=== PATIENT | female | born 1945 | race Caucasian/White ===

== ENCOUNTER 2017-05-07 01:08 | Inpatient (IN) | payer OTHER, MEDICARE ==
[~2017-05-07] VITALS: Ht 165.1 cm; Wt 106.3 kg
[~2017-05-07 01:08] MED LIST: AMLODIPINE BESY10 M1 PO; AMLODIPINE10 MG PO; CALCIUM + D 6001 TAB PO; CALCIUM + VITA1 EAC1 PO; CENTRUM SILVER1 TA1 PO; FISH OIL 1,0001 EAC5 PO; FISH OIL CONC1000 MG PO; IRON325 M3 PO; LEVOTHYROXIN0.025 M1 PO; LEVOTHYROXINE25 MCG PO; MULTIVITAMINS1 EAC9 PO; NORFLEX100 MG PO; OMEPRAZOLE20 M3 PO; PRILOSEC20 MG PO; PROLIA60 MG/ML SC; VITAMIN C1000 M1 PO; VITAMIN C500 M9 PO
[2017-05-07 11:58] VITALS: BP 132/76
[2017-05-07 12:00] VITALS: BP 132/76
--- NOTE | 2017-05-07 13:06 | Operative Report ---
Operative/Inv Procedure Report Surgery Date: 05/07/17 Name of Procedure: Left total knee arthroplasty using Pan triathlon Pre-Operative Diagnosis: Degenerative joint disease left knee Post-Operative Diagnosis: Degenerative joint disease left knee Estimated Blood Loss: less than 50ml Surgeon/Powder Blender And Pourer: Lubna MURRELL,Kadeem Villarreal.P.A. Anesthesia: block Implants: Striker triathlon system #5 femoral posterior stabilized component, #4 tibial baseplate, 13 mm polyethylene insert, 33 mm patella component Drains: 1 Hemovac Specimens: Bone specimen sent to pathology Tourniquet: Tourniquet time was 89 minutes Complications: None Condition: Stable return to the recovery room Operative Indication: This is a 71-year-old lady who has severe degenerative joint disease of the medial compartment and patellofemoral joint. She has been managed conservatively with anti-inflammatories and cortisone injections but conservative treatment has failed and now she is mid is admitted for a left total knee arthroplasty Operative/Procedure Note Note: The patient received IV vancomycin in the preoperative area. She was then taken to the operating room and a spinal anesthetic was administered. She had also had a femoral block administered in the preop area. A second pair of skilled hands was required for the successful outcome of this procedure. Truman Villarreal a certified physician's legal support assistant was required for retraction coagulation and positioning of the components. His presence was required for the successful completion of this operation. Patient received a dose of trans-Andrew acid. The left lower extremity was then prepped and draped in usual sterile fashion. A legholder was used throughout the procedure and a tourniquet was inflated above the left thigh to a pressure of 350 mmHg. The left lower extremity had been exsanguinated with a sterile Esmarch prior to tourniquet inflation. A midline incision was made and taken down through skin and subcutaneous tissue. Small bleeders are cauterized the Bovie. A medial parapatellar incision was then made and the patella was easily dislocated laterally. Osteophytes were removed from the femur tibia and patella. A partial medial release was performed. Medial and lateral meniscectomies were performed. Anterior cruciate ligament was excised. A drill hole was then made just anterior to the attachment of the anterior cruciate ligament and the long femoral guide marvel was inserted into the medullary canal. The distal femoral cutting jig was assembled and the distal femoral cut was made without difficulty. The cut surfaces were sized to a #5 femoral template. Anterior posterior and chamfer cuts were then made. A midline cutting jig was used to osteotomize the midportion of the distal femur to accept the posterior stabilized component. Attention was then turned to the tibial surface. A drill hole was made at the footprint of the anterior cruciate ligament and the tibial guide marvel was placed into the tibial medullary canal without difficulty. Using the tibial cutting jig, 3 mm of bone were resected from the affected medial side. A number 4 tibial baseplate then was placed on the cut surface of the tibia and this afforded good coverage. A trial reduction was then performed using a 13 mm tibial insert. The patient had a full range of motion she had full extension and good medial and lateral ligamentous balance. Posterior osteophytes were then removed from the distal femur using a curved osteotome Attention was then turned to the patella. A flat osteotomy was then performed and a 33 mm patellar trial afforded excellent coverage. Patient did need a lateral release to centralize tracking. The cut surface of the tibial plateau was then drilled to accept the fins of the tibial baseplate. The cut surfaces of the bones were then copiously irrigated with pulsatile lavage and antibiotic solution. The surgical area was then dried. A #5 femoral component was then cemented into place. Following this a number 4 tibial baseplate was cemented into place. Excess cement was removed with curettes. A 13 mm polyethylene temporary trial was then placed into the tibial baseplate and the knee was held in extension until the cement dried. We then cemented the 33 mm patellar button into place and the component was held with a clamp until the cement had dried. After 15 minutes all of the cement surfaces had been dried. The tibial trial insert was removed and a permanent 13 mm polyethylene insert was placed over the baseplate and locked into position. Patient again had a full range of motion, full extension and good medial and lateral ligamentous balance. The patella tracked well. The knee was once again copiously irrigated. A large Hemovac drain was placed in the lateral gutter through a small stab incision. The deep tissue layers were closed with #1 Vicryl interrupted sutures. The subcutaneous tissues were closed with 2-0 Vicryl and the skin was closed with surgical nikki. Blood loss was scant. Tourniquet time was 89 minutes. She was returned to the recovery room in excellent condition.
--- NOTE | 2017-05-07 14:05 | Admission Core Measures ---
Acute Coronary Syndrome (CM) ACS Core Measures Acute Coronary Syndrome Diagnosis No Congestive Heart Failure (NEW) CHF Core Measures Congestive Heart Failure Diagnosis No Cerebrovascular Accident (NEW) CVA Core Measures CVA/TIA Diagnosis No Venous Thromboembolism VTE Core Yessica (View Protocol) VTE Risk Factors Age>40 No Mechanical VTE Prophylaxis d/t N/A MechProphylax Ordered No VTE Pharm Prophylaxis d/t NA PharmProphylax ordered Problem List As ranked by this Provider includes Assessment & Plan 1. Localized osteoarthritis of left knee 2. Total knee replacement status HOME MEDS Home Med List Amlodipine Besylate 10 MG TABLET 1 TAB PO DAILY BP (Reported) Ascorbic Acid (Vitamin C) (Unknown Strength) CAPSULE (Unknown Dose) PO DAILY SUPPLEMENT (Reported) Calcium Carbonate/Vitamin D3 (Calcium + Vitamin D Tablet) (Unknown Strength) TABLET (Unknown Dose) PO DAILY SUPPLEMENT (Reported) Ferrous Sulfate (IRON) 325 MG (65 MG IRON) TABLET 1 TAB PO DAILY SUPPLEMENT ( Reported) Levothyroxine Sodium 25 MCG TABLET 1 TAB PO DAILY THYROID (Reported) Multiple Vitamin (Multivitamins) 1 EACH TABLET 1 TAB PO DAILY SUPPLEMENT ( Reported) [place]-3S/Dha/Epa/Fish Oil (Fish Oil 1,000 MG Softgel) (Unknown Strength) CAPSULE (Unknown Dose) PO DAILY SUPPLEMENT (Reported) Omeprazole 20 MG TABLET.DR 1 TAB PO DAILY GI (Reported)
--- NOTE | 2017-05-07 14:07 | PN- Orthopedic ---
Subjective Subjective: Postop check: Patient's feeling in her room postoperatively, she is in good spirits, she is doing well, she has no complaints of left knee pain, her appetite is good, finished lunch, no complications postoperatively. Objective Vital Signs and I&Os Vital Signs Date Time Temp Pulse Resp B/P B/P Pulse O2 O2 Flow FiO2 Mean Ox Delivery Rate 05/07 1200 97.8 68 18 132/76 94 Nasal 2.0L Cannula 05/07 1158 94 Nasal 2.0L Cannula 05/07 1158 97.8 68 18 132/76 94 Nasal 2.0L Cannula Intake & Output 05/07 1600 05/07 0800 05/07 0000 05/06 1600 05/06 0800 05/06 0000 Intake Total Output Total Balance Patient 200 lb 200 lb Weight Weight Reported by Patient Measurement Method Physical Exam: Well-developed well-nourished no apparent distress. HEENT: Atraumatic, extraocular motion intact Neck: Supple, no lymphadenopathy Respiratory: No respiratory distress Extremities: No edema /LEFT lower extremity dressing in place, large AMRIANNE drain in place, small amount of bloody drainage noted Dressing clean dry and intact On Q in place Compression wrap in place. ALPS in place Neurovascularly intact distally Bilateral calves are supple, nontender. Neuro: Alert and oriented x3 Psych: Mood affect normal, normal memory normal judgment. Skin: Warm and dry, no rash on exposed skin Assessment/Plan Assessment/Plan Postop day #0 status post left total knee arthroplasty Perioperative antibiotics. Pain medication as needed. Out of bed Physical therapy, weightbearing as tolerated IV fluids Nieves catheter until tomorrow Regular diet Continue on Q Follow a.m. labs Continue MARIANNE drain to self suction, record output every shift Eliquis for DVT prophylaxis ALPS for DVT prophylaxis Regular home meds Dressing change postop day 2 Core Measures Venous Thromboembolism VTE Risk Factors Age>40 No Mechanical VTE Prophylaxis d/t N/A MechProphylax Ordered No VTE Pharm Prophylaxis d/t NA PharmProphylax ordered
[2017-05-07 14:32] VITALS: BP 112/60
[2017-05-07 16:02] VITALS: BP 118/58
[2017-05-07 18:10] VITALS: BP 130/60
[2017-05-07 20:00] VITALS: BP 142/60
[2017-05-08 00:12] VITALS: BP 134/68
[2017-05-08 04:00] VITALS: BP 134/60
[2017-05-08 07:59] VITALS: BP 132/72
[2017-05-08 08:03] LABS: ABSOLUTE BASOPHIL COUNT 0 /CUMM (0.0-0.2); ABSOLUTE EOSINOPHIL COUNT 0 /CUMM (0.0-0.7); ABSOLUTE GRANULOCYTE CT 13.5 /CUMM (1.4-6.5); ABSOLUTE LYMPH COUNT 0.6 /CUMM (1.2-3.4); ABSOLUTE MONOCYTE COUNT 1.2 /CUMM (0.10-0.60); BASOPHIL % 0 % (0.0-2.0); EOSINOPHIL % 0 % (0-5); MEAN CORPUSCULAR HGB 29.3 PG (27.0-31.0); MEAN CORPUSCULAR HGB CONC 33.4 G/DL (33.0-37.0); MEAN CORPUSCULAR VOLUME 87.8 FL (81.0-99.0); MEAN PLATELET VOLUME 10.3 FL (7.4-10.4); PLATELET COUNT 175 /CUMM (130-400); RBC DISTRIBUTION WIDTH 13.6 % (11.5-14.5); RED BLOOD CELL CT 3.65 /CUMM (4.20-5.40); WHITE BLOOD CELL COUNT 15.3 /CUMM (4.8-10.8)
[2017-05-08 09:47] LABS: GRANULOCYTE % 88.3 % (42.2-75.2)
--- NOTE | 2017-05-08 11:45 | PN- Orthopedic ---
Subjective Subjective: No acute overnight events reported. Pain tolerable presently per patient, only feels "Throbbing". Was able to ambulate with PT. Denies chest pain, shortness of breath and difficulty breathing. Denies nausea and vomitting. Has been tolerating adequate po, iv fluids have been dcd. No dizziness. Nieves catheter dc'd this am. Voided spontaneously. Objective Vital Signs and I&Os Vital Signs Date Time Temp Pulse Resp B/P B/P Pulse O2 O2 Flow FiO2 Mean Ox Delivery Rate 05/08 0759 98.1 69 18 132/72 90 Room Air 05/08 0400 98.8 62 18 134/60 91 Room Air 05/08 0012 98.7 64 18 134/68 91 Room Air 05/07 2000 98.4 68 18 142/60 91 Room Air 05/07 1810 97.6 68 18 130/60 93 Room Air 05/07 1602 97.5 61 16 118/58 93 Room Air 05/07 1432 97.5 57 18 112/60 92 05/07 1200 97.8 68 18 132/76 94 Nasal 2.0L Cannula 05/07 1158 94 Nasal 2.0L Cannula 05/07 1158 97.8 68 18 132/76 94 Nasal 2.0L Cannula Intake & Output 05/08 1600 05/08 0800 05/08 0000 05/07 1600 05/07 0800 05/07 0000 Intake Total 200 400 825 Output Total 865 270 400 Balance -665 130 425 Intake, IV 300 225 Intake, Oral 200 100 600 Number 0 Bowel Movements Output, 65 120 Drainage Output, Urine 800 150 400 Patient 203 lb 200 lb Weight Weight Bed scale Reported by Patient Measurement Method Physical Exam: General: Alert and oriented x3, no acute distress Cardiac: RRR, s1s2 Pulm: CTA bilaterally ABD: Soft, non-tender, non-distended Extremities: Moves all extremities, distal sensation grossly intact. Skin warm and well perfused. DP pulses palpable bialterally. Bilateral calves soft and non-tender Surgical site: Left knee. Dressing dry and intact. On Q in place, no leaking. MARIANNE drain holding suction, sanguinous drainage. Assessment/Plan Assessment/Plan This is a 71 year old female, POD 1, s/p L TKR -DVT ppx: Alps, eliquis 2.5 bid to start today -Activity: OOB, wbat -Diet: As tolerated, dc iv fluids -Pain: Continue current pain regimen, recommend no toradol while on eliquis -Dressing: To be changed tomorrow by surgical pa -Anticipate dc to home thursday -Will discuss plan of care with dr. Calvo Core Measures Venous Thromboembolism VTE Risk Factors Age>40 No Mechanical VTE Prophylaxis d/t N/A MechProphylax Ordered No VTE Pharm Prophylaxis d/t NA PharmProphylax ordered
[2017-05-08 11:56] VITALS: BP 132/80
--- NOTE | 2017-05-08 14:18 | PN- Orthopedic ---
Surgical Brief Attending Note Brief Attending Note: Ariella is 24 hours status post left total knee arthroplasty. Her vital signs are stable. She is comfortable and the femoral block appears to be working. She was able to ambulate 250 feet today and this afternoon she will negotiate stairs. Neurologically she is intact. Her blood work today reveals a white count of 15 a hemoglobin of 10.7 and a hematocrit of 32. Her potassium was 4.0. Her Nieves was discontinued her Hemovac is still draining a small amount and should be discontinued tomorrow. She will be on Eliquis for the next 4 weeks. Suture removal will be in 2 weeks and then I will see her routinely in the office in 4 weeks barring any problems.
[2017-05-08 14:39] VITALS: BP 132/72
[2017-05-08 22:29] VITALS: BP 124/76
[2017-05-09 06:55] VITALS: BP 134/72
--- NOTE | 2017-05-09 09:17 | PN- Orthopedic ---
Subjective Subjective: Patient reports pain last night after working with PT. Currently pain is well controlled with Percocet this morning. She is tolerating a diet without any nausea or vomiting. She reports voiding and is passing flatus. Hemovac was removed yesterday. Objective Vital Signs and I&Os Vital Signs Date Time Temp Pulse Resp B/P B/P Pulse O2 O2 Flow FiO2 Mean Ox Delivery Rate 05/09 0655 97.8 61 18 134/72 96 Room Air 05/08 2229 98.9 64 18 124/76 93 Room Air 05/08 1439 98.1 69 20 132/72 90 Room Air 05/08 1156 98.1 64 18 132/80 93 Room Air Intake & Output 05/09 1600 05/09 0800 05/09 0000 05/08 1600 05/08 0800 05/08 0000 Intake Total 250 250 900 200 400 Output Total 90 865 330 Balance 250 250 810 -665 70 Intake, IV 10 10 300 Intake, Oral 240 240 900 200 100 Number 0 Bowel Movements Output, 90 65 180 Drainage Output, Urine 800 150 Patient 234 lb 203 lb Weight Weight Bed scale Measurement Method Physical Exam: Gen - sitting in a chair in NAD Cardiac - S1S2 noted Lungs - CTAB Ext - LLE uhgh wrap and ice in place, onQ removed, incision closed with nikki healing well with no signs of infection, dressing changed, moderate swelling noted, motor and sensory intact, appropriately tender, alps in place, no significant edema or calf tenderness Current Medications: Current Medications Sig/Derrick Start time Last Medication Dose Route Stop Time Status Admin Amlodipine Besylate 10 MG DAILY 05/07 1000 AC 05/08 PO 0834 Apixaban 2.5 MG BID 05/08 1000 AC 05/08 PO 2045 Docusate Sodium 100 MG DAILY NEEDED PRN 05/07 1245 AC PO Levothyroxine Sodium 0.025 MG DAILY 05/07 1000 AC 05/08 PO 0636 Morphine Sulfate 4 MG Q3P PRN 05/07 1415 AC IV Omeprazole 20 MG DAILY AC 05/08 0700 AC 05/09 PO 0553 Ondansetron HCl 4 MG Q6P PRN 05/07 1245 AC IV Oxycodone/ 1 TAB Q4P PRN 05/07 1245 AC Acetaminophen PO Oxycodone/ 2 TAB Q4P PRN 05/07 1245 AC 05/09 Acetaminophen PO 0553 Patient Medication 1 ED ONE ONE 05/08 1400 DC 05/08 [facility] ED 05/08 1401 1912 Polyethylene Glycol 17 GM DAILY NEEDED PRN 05/07 1245 AC PO Senna/Docusate Sodium 2 TAB AT BEDTIME NEED.. 05/07 1245 AC PO Results Last 48 Hours of Labs: Laboratory Tests 05/08 0704 Chemistry Sodium (137 - 145 mmol/L) 140 Potassium (3.5 - 5.1 mmol/L) 4.0 Chloride (98 - 107 mmol/L) 105 Carbon Dioxide (22 - 30 mmol/L) 23 Anion Gap (5 - 16) 12 BUN (7 - 17 mg/dL) 16 Creatinine (0.5 - 1.0 mg/dL) 0.7 Estimated GFR (>60 ml/min) > 60 BUN/Creatinine Ratio (7 - 25 %) 22.9 Hematology CBC w Diff NO MAN DIFF REQ WBC (4.8 - 10.8 /CUMM) 15.3 H RBC (4.20 - 5.40 /CUMM) 3.65 L Hgb (12.0 - 16.0 G/DL) 10.7 L Hct (37 - 47 %) 32.0 L MCV (81.0 - 99.0 FL) 87.8 MCH (27.0 - 31.0 PG) 29.3 MCHC (33.0 - 37.0 G/DL) 33.4 RDW (11.5 - 14.5 %) 13.6 Plt Count (130 - 400 /CUMM) 175 MPV (7.4 - 10.4 FL) 10.3 Gran % (42.2 - 75.2 %) 88.3 H Lymphocytes % (20.5 - 51.1 %) 3.7 L Monocytes % (1.7 - 9.3 %) 8.0 Eosinophils % (0 - 5 %) 0 Basophils % (0.0 - 2.0 %) 0 Absolute Granulocytes (1.4 - 6.5 /CUMM) 13.5 H Absolute Lymphocytes (1.2 - 3.4 /CUMM) 0.6 L Absolute Monocytes (0.10 - 0.60 /CUMM) 1.2 H Absolute Eosinophils (0.0 - 0.7 /CUMM) 0 Absolute Basophils (0.0 - 0.2 /CUMM) 0 Recent Imaging Studies: SERVICE DATE: 05/09/17 EXAM TYPE: RAD - XRY-KNEE, LEFT EXAMINATION: XR KNEE, LEFT CLINICAL INFORMATION: Status post left total knee arthroplasty. COMPARISON: None TECHNIQUE: AP and crosstable lateral views of the left knee. FINDINGS: Prosthetic components of the left total knee arthroplasty are appropriately aligned. No periprosthetic fracture. Skin nikki are present in the anterior soft tissues which are swollen and edematous. A small joint effusion is present. IMPRESSION: Appropriate alignment of the left total knee arthroplasty. Assessment/Plan Assessment/Plan 71 F POD 2 s/p L TKR, recovering well, knee x-ray revelaed appropriate alignment , cleared by PT Reg diet PT, WBAT Pain reigmen prn, d/c IV narcotics Eliquis 2.5mg bid x 4 weeks Cont dry daily dressing changes Home meds on board Bowel regimen on board Anticipate d/c home with hhs within 24-48 hours D/w Dr. Patino who is covering for Dr. Calvo Core Measures Venous Thromboembolism VTE Risk Factors Age>40 No Mechanical VTE Prophylaxis d/t N/A MechProphylax Ordered No VTE Pharm Prophylaxis d/t NA PharmProphylax ordered
--- NOTE | 2017-05-09 09:51 | RADIOLOGY REPORT ---
EXAMINATION: XR KNEE, LEFT CLINICAL INFORMATION: Status post left total knee arthroplasty. COMPARISON: None TECHNIQUE: AP and crosstable lateral views of the left knee. FINDINGS: Prosthetic components of the left total knee arthroplasty are appropriately aligned. No periprosthetic fracture. Skin nikki are present in the anterior soft tissues which are swollen and edematous. A small joint effusion is present. IMPRESSION: Appropriate alignment of the left total knee arthroplasty.
[2017-05-09] MEDS ORDERED: ELIQUIS2.5 M1 PO (10:50)
[2017-05-09] MEDS ORDERED: PERCOCET 5-3251 EACH PO (10:50)
--- NOTE | 2017-05-09 11:00 | Patient Discharge Instructions ---
Discharge Instructions General Discharge Information You were seen/treated for: Left knee pain related to osteoarthritis You had these procedures: Left total knee arthroplasty Watch for these problems: Worsening pain despite pain medications Inability to bear wear on operative leg Redness or drainage from incision Fever > 101 F Call Surgeon to remove: [place] Other wound care: Keep incision clean and dry. Dressing will be changed 48hr after surgery, then you may shower. Do not soak wound, no tub baths/swimming. Daily dry dressings recommended. Watch for signs of wound infection. Special Instructions: Take Eliquis, as prescribed for clot prevention Take Percocet, as needed for pain control. Recommend over the counter stool softner, colace or senna to prevent contipation while taking Percocet. Call to schedule a follow up appointment in 2 week for staple removal. Diet Continue normal diet: Yes Activity Activity Self Limited: Yes Activity Limited to: Weight bear as tolerated Other activity limits: Use rolling walker as needed Acute Coronary Syndrome Inclusion Criteria At DC or during hospital stay patient has or had the following: ACS DIAGNOSIS No Discharge Core Measures Meds if any: Prescribed or Continued at Discharge Meds if any: NOT Prescribed or Continued at Discharge Congestive Heart Failure Inclusion Criteria At DC or during hospital stay patient has or had the following: CHF DIAGNOSIS No Discharge Core Measures Meds if any: Prescribed or Continued at Discharge Meds if any: NOT Prescribed or Continued at Discharge Cerebrovascular accident Inclusion Criteria At DC or during hospital stay patient has or had the following: CVA/TIA Diagnosis No Discharge Core Measures Meds if any: Prescribed or Continued at Discharge Meds if any: NOT Prescribed or Continued at Discharge Venous thromboembolism Inclusion Criteria VTE Diagnosis No VTE Type NONE VTE Confirmed by (Test) NONE Discharge Core Measures - Per Current guidelines, there needs to be overlap - treatment for the first 5 days of Warfarin therapy. - If discharged on Warfarin prior to 5 days of - overlap therapy, the patient will need to be - assessed for post discharge needs including - *Post discharge parental anticoagulation - *Warfarin and/or parental anticoagulation education - *Follow up date to check INR post discharge At least 5 days overlap therapy as Inpatient No Meds if any: Prescribed or Continued at Discharge Note: Overlap Therapy is Warfarin and Anticoagulant Meds if any: NOT Prescribed or Continued at Discharge
--- NOTE | 2017-05-09 11:01 | Surg Short-stay <48hrs Dis Sum ---
Visit Information Visit Dates Admission Date: 05/07/17 Discharge Date: 05/09/17 Surgical Short Stay DC Summary Admission Diagnosis: Primary osteoarthritis left knee Final Diagnosis: Same, status post left total knee arthroplasty Procedure(s): Left total knee arthroplasty Summary/Significant Findings: Patient was admitted to the hospital for an elective total left knee replacement. Procedure was tolerated well and patient was transferred to a general surgical floor. Diet was advanced and tolerated. Physical therapy performed evaluation and treatment. At time of hospital discharge, vital signs were stable, neurovascular status was intact, and pain was controlled with the use of oral pain medications. Condition at Discharge: Stable Discharge Disposition: home health services Discharge instructions provided to patient/family: Yes Post discharge follow-up plan: Follow up with Dr. Calvo in 2 weeks for staple removal.
== END 2017-05-09 13:34 | disposition home health service (06) | DRG 470 ==
LOC: SDA 01:08 → ENRESERV 10:59 → ENTRNSPT 11:35 → EDTRNSPTSTS 11:51 → 2NA 11:57 → CMPTRNSPT 12:05 → ENPENDDIS 05-09 12:14 → ENTRNSPT 05-09 12:55 → EDTRNSPTSTS 05-09 13:28 → EDTRNSPT 05-09 13:28 → 2NA 05-09 13:34 → CMPTRNSPT 05-09 13:43
PROVIDERS: Physician Assistant Surgical
PROC: 0SRD0J9 Replacement of Left Knee Joint with Synthetic Substitute, Cemented, Open Approach (ICD-10-PCS; principal; 2017-05-07)
PROC: 3E0T3BZ Introduction of Anesthetic Agent into Peripheral Nerves and Plexi, Percutaneous Approach (ICD-10-PCS; 2017-05-07)
DX: M17.12 Unilateral primary osteoarthritis, left knee (principal); E03.9 Hypothyroidism, unspecified; I10 Essential (primary) hypertension; K21.9 Gastro-esophageal reflux disease without esophagitis; R91.8 Other nonspecific abnormal finding of lung field; E66.9 Obesity, unspecified; Z68.33 Body mass index [BMI] 33.0-33.9, adult; E78.5 Hyperlipidemia, unspecified; M81.0 Age-related osteoporosis without current pathological fracture; Z91.89 Other specified personal risk factors, not elsewhere classified; Z86.010 Personal history of colon polyps; Z88.0 Allergy status to penicillin; Z88.1 Allergy status to other antibiotic agents
CPT/HCPCS: 2NAP; 36415; 73560-LT; 82436; 87086; 97110-GO; 97116-GO; 97161-GP; 97530-GO; C1713; C9399; J0131; J1100; J1885; J2405; J2795; J3370; J7040; J7060; J7120